=== PATIENT | female | born 1975 ===

== ENCOUNTER 2018-07-10 12:13 | Outpatient (CLI) | payer OTHER ==
[~2018-07-10] VITALS: Ht 167.6 cm; Wt 73.9 kg
== END 2018-07-10 12:30 | disposition home or self-care (01) ==
LOC: OFIC 805 12:13
DX: M62.838 Other muscle spasm (principal)

== ENCOUNTER 2018-09-11 15:11 | Outpatient (CLI) | payer OTHER ==
[~2018-09-11] VITALS: Ht 152.4 cm; Wt 73.9 kg
== END 2018-09-11 15:30 | disposition home or self-care (01) ==
LOC: OFIC 805 15:11
DX: M26.69 Other specified disorders of temporomandibular joint (principal); M62.838 Other muscle spasm; J35.8 Other chronic diseases of tonsils and adenoids; J34.9 Unspecified disorder of nose and nasal sinuses